=== PATIENT | male | born 1980 | race Caucasian/White ===

== ENCOUNTER 2018-10-10 02:00 | Emergency (ER) | payer OTHER ==
[~2018-10-10] VITALS: Ht 180.3 cm; Wt 83.9 kg
[2018-10-10] MEDS ORDERED: AUGMENTIN 875-1 EACH PO (03:36)
[2018-10-10 04:06] VITALS: BP 150/97
== END 2018-10-10 04:06 | disposition home or self-care (01) ==
LOC: M.ERS 02:00
DX: S01.511A Laceration without foreign body of lip, initial encounter (principal); W54.0XXA Bitten by dog, initial encounter; Y93.89 Activity, other specified; Y92.89 Other specified places as the place of occurrence of the external cause; Y99.8 Other external cause status